=== PATIENT | female | born 1980 | race Caucasian/White ===

== ENCOUNTER → 2024-01-16 | Day surgery (SDC) | payer BC ==
--- NOTE | 2024-01-23 14:08 | MM ---
Reason for Exam: Post Procedure Mammogram. Risk Values: Rachel 5 year model risk: 0.5%. NCI Lifetime model risk: 6.4%. Tissue Density: Left: The breasts are heterogeneously dense, which may obscure small masses. Pathology Description: Location: 9 o'clock. Marker Left Behind. Needle Type: Celero Cores: 3 Gauge: 12 The procedure of ultrasound guided core biopsy was explained to the patient. Benefits, alternatives, and risks were discussed. An informed consent was then obtained. The patient was placed in supine positioning for imaging and for the procedure. The overlying skin was prepped and draped in usual sterile fashion. Lidocaine buffered with bicarbonate was used as anesthetic into the skin and subcutaneous tissue up to area of concern in the left 9:00 breast. A sarbjit was made with surgical scalpel. Under ultrasound guidance, a 12-gauge vacuum assisted biopsy gun device was used to obtain 3 core samples. Following this, a biopsy clip was left in lesion. The patient tolerated the procedure well without any immediate complication. The patient was kept in the radiology department for short stay after the procedure and then discharged home in stable condition. Postprocedure mammogram: The patient was transferred to mammography for physician ordered post procedure mammogram for clip placement verification. Impression: Successful, uncomplicated ultrasound guided core biopsy of area of concern in the left lung breast, full pathology results to follow. [facility], , 01/16/2024 10:39 AM. Pathology Results: Result: Benign, Fibrocystic change. Pathology and radiology were reviewed. Findings are concordant. 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 See note. 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 Rare favored minute microcalcification is seen. Another differential consideration includes a fibrous scar. PASH can mimic a mass lesion by imaging. Clinical correlation with imaging studies is suggested, as indicated. Overall Assessment: Benign Assessment: MG diagnostic mammo LT wo CAD. - Left: Benign, BI-RAD 2. Management: Diagnostic Mammogram of the left breast in 6 months. Diagnostic Breast Ultrasound of the left breast in 6 months. Electronically signed and approved by: Ga Taylor M.D. Radiologis
== END ==
LOC: RADUSWWP 08:00
PROVIDERS: ATTEND Surgery
DX: N60.12 Diffuse cystic mastopathy of left breast (principal); N60.82 Other benign mammary dysplasias of left breast
CPT/HCPCS: 88305; 77065; 19083; A4648

== ENCOUNTER → 2024-02-14 | Outpatient (CLI) | payer BC ==
[2024-02-14 14:22] VITALS: BP 98/65; PULSE 89; RESP 15; TEMP 98.5
--- NOTE | 2024-02-14 15:03 | P.GSCN ---
History of Present Illness Consult date: 02/14/24 Reason for Consult: abnormal left breast mammogram History of present illness: Jessica is a 43-year-old female seen in consultation for Boaz Marcus regarding a radiographic abnormality in the left breast. She underwent a bilateral screening mammogram on 12-25-2023. To be incomplete and diagnostic left breast mammogram and ultrasound were recommended. The breasts were noted to be heterogeneously dense and in the left breast 2.7 cm from the nipple there was a 7 mm and 4.2 cm from the nipple an 8 mm area of concern. The patient subsequently underwent a left breast diagnostic mammogram which showed persistent nodular densities upon compression and ultrasound was recommended. Ultrasound was performed on 01-07-2024 which revealed posterior nipple region cystic structure measuring 8 x 6 mm at the 9 o'clock position 4 cm from the nipple a solid lesion measuring 9 x 8 cm. O'clock lesion was recommended for an ultrasound-guided core biopsy. This was performed on 01-17-2024. 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 Benign concordant and repeat mammogram and ultrasound of the left breast in 6 months were recommended. Not palpable. It was noted on a routine screening mammogram. She is not complaining of any nipple discharge or skin changes. She is not complaining of any trauma or infection in the breast. She has not had any other breast biopsies in the past. She is seen with her . Her periods are regular. Caffeine: occasional nicotine: 1 ppd/25 years chocolate: occasional BCP: not used pills used depo for about 15 years hormones: none Family History: adopte so unknown Hormonal History: menarche: 10 , breast fed: no, age at first : 30 periods regular; LMP 2 weeks ago Surgical HIstory: Medical HIstory:migraine Social History: nicotine: 1 ppd/25 years alcohol: none drugs: none Review of Systems - Constitutional Denies fever, Denies weight loss - EENT Eyes: denies blurred vision Ears: deny: decreased hearing, tinnitus Ears, nose, mouth and throat: Denies dysphagia - Breasts bilateral: as per HPI - Cardiovascular Denies chest pain, Denies shortness of breath - Respiratory Reports as per HPI, Denies cough - Gastrointestinal Reports as per HPI - Genitourinary Genitourinary: Denies dysuria, Denies hematuria Menstruation: Reports period normal - Musculoskeletal Reports as per HPI - Integumentary Denies rash, Denies unusual bruising - Neurological Denies headaches, Denies syncope - Psychiatric Reports as per HPI - Endocrine Reports as per HPI - Hematologic/Lymphatic Denies easy bleeding, Denies easy bruising - Allergic/Immunologic Reports as per HPI Past Medical History Additional Past Medical History / Comment(s): migraines History of Any Multi-Drug Resistant Organisms: None Reported Past Surgical History: Section Past Anesthesia/Blood Transfusion Reactions: No Reported Reaction Past Psychological History: No Psychological Hx Reported Smoking Status: Current every day smoker Past Alcohol Use History: None Reported Additional Past Alcohol Use History / Comment(s): .5 ppd Past Drug Use History: None Reported Medications and Allergies Home Medications Medication Instructions Recorded Confirmed Type Topiramate [Topamax] 100 mg PO BID 01/11/24 02/14/24 History Allergies Allergy/AdvReac Type Severity Reaction Status Date / Time No Known Allergies Allergy Verified 02/14/24 14:14 Surgical - Exam Vital Signs Temp Pulse Resp BP Pulse Ox 98.5 F 89 15 98/65 100 02/14/24 14:14 02/14/24 14:14 02/14/24 14:14 02/14/24 14:14 02/14/24 14:14 - General no distress - Eyes normal ocular movement - Neck trachea midline - Respiratory normal respiratory effort, clear to auscultation - Cardiovascular Rhythm: regular Heart Sounds: normal: S1, S2 - Abdomen Abdomen: soft, non tender, no guarding, no rigid, no rebound - Integumentary normal turgor - Neurologic no disoriented, no combative - Musculoskeletal normal gait - Psychiatric oriented to time, oriented to person, oriented to place, speech is normal, memory intact Breaset Exam: BRA: medium sports bra inspection: Bilateral grade 2 ptosis, dark nevus left chest wall Palpation: Right breast: Multi positional exam dense breast, fibrocystic changes, no dominant masses or nodules of concern Right axilla: No adenopathy of concern Left breast: Multi positional exam no dominant masses or nodules of concern, dense breast, Left axilla: No adenopathy of concern Results Mammogram and ultrasound pathology results are reviewed Assessment and Plan Assessment: Impression: Abnormal left breast mammogram/ultrasound leading to ultrasound-guided core biopsy of the left breast benign concordant PASH Fibrocystic breast changes/dense breast Plan: Repeat left breast mammogram and ultrasound in 6 months with examination at that time Patient to follow-up sooner any questions or concerns Lifestyle modification of stopping nicotine may decrease the density of the breast patient encouraged to stop smoking CC: Candy Sandra
== END ==
LOC: WWCWWP 14:02
PROVIDERS: ATTEND Surgery
DX: R92.8 Other abnormal and inconclusive findings on diagnostic imaging of breast (principal); R92.332 Mammographic heterogeneous density, left breast; N60.02 Solitary cyst of left breast; N60.11 Diffuse cystic mastopathy of right breast; N64.89 Other specified disorders of breast; F17.210 Nicotine dependence, cigarettes, uncomplicated

== ENCOUNTER → 2024-08-04 | Outpatient (CLI) | payer BC ==
--- NOTE | 2024-08-04 13:36 | MM ---
Reason for Exam: Follow-up at short interval from prior study. Last screening mammogram was performed 7 month(s) ago. Patient History: 01/16/2024, Benign US biopsy breast VAD LT on the left side. Risk Values: Rachel 5 year model risk: 0.8%. NCI Lifetime model risk: 7.6%. Prior Study Comparison: 01/16/2024 Left MG diagnostic mammo LT wo CAD., [facility]. Tissue Density: Left: The breasts are heterogeneously dense, which may obscure small masses. Findings: Analyzed By CAD. Biopsy clip in the left breast is redemonstrated. Stable 5 mm circumscribed round mass in the central left breast. No new masses or worrisome clusters of microcalcifications identified. Overall Assessment: Benign, BI-RAD 2 Management: Screening Mammogram of both breasts in 5 months. . Results were given to the patient verbally at the time of exam. Patient should continue monthly self-breast exams. A clinical breast exam by your physician is recommended on an annual basis. This exam should not preclude additional follow-up of suspicious palpable abnormalities. Note on Rahcel scores and lifetime risk: 1. A Rachel score greater than 3% is considered moderate risk. If this is the case, consider specialist referral to assess eligibility for a risk reducing agent. 2. If overall lifetime risk for the development of breast cancer is 20% or higher, the patient may qualify for future screening with alternating mammogram and breast MRI. [facility], , 08/04/2024 1:33 PM. Electronically signed and approved by: Jordan Shore M.D.
--- NOTE | 2024-08-04 13:48 | USB ---
Reason for Exam: Follow-up at short interval from prior study. Patient History: 01/16/2024, Benign US biopsy breast VAD LT on the left side. Risk Values: Rachel 5 year model risk: 0.8%. NCI Lifetime model risk: 7.6%. Technique: Method: Targeted. Prior Study Comparison: 01/16/2024 Left MG diagnostic mammo LT wo CAD., [facility]. Findings: The medial section of the breast of the left breast was scanned. Targeted ultrasound. Biopsy clip at 9:00 position 5 cm distance from nipple is redemonstrated. There is a 6 x 5 mm hypoechoic lesion or area of this level which is diminished in size from previous biopsy images. No new suspicious masses are present. Overall Assessment: Benign, BI-RAD 2 Management: Screening Mammogram of both breasts in 1 year. A clinical breast exam by your physician is recommended on an annual basis and results should be correlated with mammographic findings. This exam should not preclude additional follow-up of suspicious palpable abnormalities. Results were given to the patient verbally at the time of exam. [facility], , 08/04/2024 1:45 PM. Electronically signed and approved by: Jordan Shore M.D.
== END | disposition home or self-care (01) ==
LOC: RADMAMWWP 12:55
PROVIDERS: ATTEND Surgery
DX: R92.8 Other abnormal and inconclusive findings on diagnostic imaging of breast (principal); R92.332 Mammographic heterogeneous density, left breast
CPT/HCPCS: 77061; 77065